=== PATIENT | female | born 1985 | race Native Hawaiian/Other Pacific Islander ===

== ENCOUNTER 2017-09-16 19:44 | Emergency (ER) | payer OTHER ==
[2017-09-16 20:07] VITALS: BP 116/86; PULSE 79; RESP 20; TEMP 98.7; O2SAT 100
--- NOTE | 2017-09-16 20:07 | C.PDOC ---
History Of Present Illness 32 y/o female presents to ED for complaints of mild right facial droop that began 2 days ago. Patient also reports altered taste sensation. Denies any other physical complaints. Chief Complaint (Nursing): Weakness/Neurological Deficit History Per: Patient History/Exam Limitations: None Onset/Duration Of Symptoms: Days (2) Current Symptoms Are (Timing): Still Present Symptoms Have Been: Continuous Anticoagulant/Antiplatlet Use?: Unknown Recent Aspirin Use: Unknown Past Medical History Reviewed: Historical Data, Nursing Documentation, Vital Signs Vital Signs: Last Vital Signs Temp 98.7 F 09/16/17 20:02 Pulse 79 09/16/17 20:02 Resp 20 09/16/17 20:02 BP 116/86 09/16/17 20:02 Pulse Ox 100 09/16/17 20:07 - Medical History PMH: No Chronic Diseases Surgical History: No Surg Hx Family History: States: No Known Family Hx Review Of Systems Constitutional: Negative for: Fever, Chills ENT: Positive for: Other (Altered taste sensation ) Gastrointestinal: Negative for: Nausea, Vomiting, Abdominal Pain, Diarrhea Skin: Negative for: Rash Neurological: Positive for: Other (Mild right sided facial droop ). Negative for: Weakness, Numbness Physical Exam - Physical Exam Appears: Non-toxic, No Acute Distress, Other (Right mild facial droop involving forhead; Decreased right sided cranial strength ) Skin: Normal Color, Warm, Dry, No Rash Head: Atraumatic, Normacephalic Eye(s): bilateral: Normal Inspection, PERRL, EOMI Ear(s): Bilateral: Normal Nose: Normal, No Discharge, No Deformity Oral Mucosa: Moist Throat: Normal, No Erythema, No Exudate, No Drooling, No Mass Neck: Supple Chest: Symmetrical, No Tenderness Cardiovascular: Rhythm Regular, No Murmur Respiratory: Normal Breath Sounds, No Decreased Breath Sounds, No Rales, No Rhonchi, No Wheezing Gastrointestinal/Abdominal: Soft, No Tenderness, No Distention Extremity: Normal ROM, No Pedal Edema, No Deformity Extremity: Bilateral: Atraumatic, Normal Color And Temperature, Normal ROM Pulses: Left Dorsalis Pedis: Normal, Right Dorsalis Pedis: Normal Neurological/Psych: Oriented x3, Normal Speech, Normal Motor, Normal Sensation, Normal Reflexes Gait: Steady ED Course And Treatment O2 Sat by Pulse Oximetry: 100 (RA) Pulse Ox Interpretation: Normal Progress Note: prednisone, pepcid PO Medical Decision Making Medical Decision Making: Administered pepcid and prednisone. 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 eye lubricant drops for R eye before sleep follow-up with Dr. Garcia this week for re-eval (she should see you at your baseline exam) Neuro referral as needed Prescriptions: Prednisone [Deltasone] 20 mg PO DAILY #23 tablet Instructions: Stover's Palsy (DC) Forms: Generate (Uzbek) - Clinical Impression Clinical Impression: Facial droop - Scribe Statement The provider has reviewed the documentation as recorded by the Scribe Remigio Quiroga All medical record entries made by the Scribe were at my direction and personally dictated by me. I have reviewed the chart and agree that the record accurately reflects my personal performance of the history, physical exam, medical decision making, and the department course for this patient. I have also personally directed, reviewed, and agree with the discharge instructions and disposition.
== END 2017-09-16 20:20 | disposition home or self-care (01) ==
LOC: C.ER 19:44
DX: R29.810 Facial weakness (principal)